=== PATIENT | male | born 1990 | race Caucasian/White ===

== ENCOUNTER → 2018-11-03 17:35 | Outpatient (CLI) | payer OTHER, SELFPAY ==
--- NOTE | 2018-11-03 17:49 | CT_ITS ---
STUDY: CT RIGHT HAND WITH NO CONTRAST REASON FOR EXAM: Male, 28 years old. Fifth metacarpal fracture RADIATION DOSAGE (If Supplied By Facility): CTDIvol = ( 24.58 ) mGy, DLP = ( 652.80 ) mGycm. Individualized dose optimization techniques were used for this CT.? TECHNIQUE: 2.5 mm axial images was reformatted at coronal and sagittal series included. COMPARISON: None. FINDINGS: Comminuted fracture is noted at the base of the fifth metacarpus involving the proximal articular surface. Remaining metacarpal bones and carpal bones are normal. Normal phalanges of the digits. Normal visualized radius and ulna. No soft tissue collection. Mild medial subcutaneous edema is noted. CT/Extremity Upper without Contra IMPRESSION: Comminuted fracture is noted at the base of the fifth metacarpus involving the articular surface. Electronically Signed: Amauri Cortés DO at 18:51 EST Tel [phone], Service support ,
== END ==
PROVIDERS: Family Provider Family Medicine; PCP Family Medicine; Referring Provider Physician Assistant; Visit Provider Physician Assistant
DX: S62.346A Nondisplaced fracture of base of fifth metacarpal bone, right hand, initial encounter for closed fracture (principal)
CPT/HCPCS: 73200

== ENCOUNTER → 2020-11-16 07:48 | Outpatient (CLI) | payer OTHER, SELFPAY ==
[2020-11-09 09:22] VITALS: BMI 22.4
--- NOTE | 2020-11-16 07:53 | CT_ITS ---
STUDY: CT ABDOMEN AND PELVIS WITH CONTRAST REASON FOR EXAM: Male, 30 years old. STOMACH PAIN, HX-CROHNS, INCISIONAL HERNIA, PREV PANCREATIC REPAIR D/T TRAUMA, ANAL FISTULA REPAIR RADIATION DOSAGE (If Supplied By Facility): CTDIvol = ( 9.6 ) mGy, DLP = ( 622.87 ) mGycm TECHNIQUE: Transaxial images were obtained from the dome of the diaphragm to the symphysis pubis with oral contrast. Oral and amp; IV Readi-CAT and amp; 100mL Isovue-300 was administered. Sagittal and coronal images were reconstructed. Individualized dose optimization techniques were used for this CT. COMPARISON: None. FINDINGS: The visualized lung bases are unremarkable. The visualized portions of the heart are within normal limits. Normal liver. Normal gallbladder and extrahepatic biliary system. Normal spleen. Normal pancreas. Normal bilateral adrenal glands. Normal right kidney. Normal left kidney. There is a small hiatal hernia. There is evidence of a circumferential wall thickening of the terminal ileum with the increased markings in the surrounding peritoneal fat and small mesenteric lymph nodes at that site. There is also evidence of a mild degree of thickening of the medial aspect of the cecum. Normal colon. The appendix is visualized and appears normal. Normal abdominal aorta. Normal inferior vena cava. Normal retroperitoneum. Normal urinary bladder. Normal abdominal wall. Normal osseous structures. CT/Abdomen/Pelvis WITH Contrast IMPRESSION: Circumferential wall thickening and inflammatory changes of the terminal ileum with narrowing. There is also evidence of mild degree of edematous changes of the cecum. Electronically Signed: Alfredo Barakat MD at 9:04 EST , Service support ,
== END ==
PROVIDERS: PCP Student in an Organized Health Care Education/Training Program; Referring Provider Surgery; Visit Provider Surgery
DX: K43.2 Incisional hernia without obstruction or gangrene (principal)
CPT/HCPCS: 74177; Q9967

== ENCOUNTER 2022-05-18 09:28 | Emergency (ER) | payer OTHER, SELFPAY ==
[2022-05-18 09:28] VITALS: BP 162/90; PULSE 105; RESP 18; TEMP 36.1; O2SAT 100; BMI 22.4
--- NOTE | 2022-05-18 10:12 | CT_ITS ---
STUDY: CT BRAIN WITHOUT CONTRAST REASON FOR EXAM: Male, 32 years old. Headache RADIATION DOSAGE (If Supplied By Facility): CTDIvol = ( 44.99 ) mGy, DLP = ( 829.85 ) mGycm TECHNIQUE: Transaxial CT imaging of the brain was performed without administration of intravenous contrast material. Individualized dose optimization techniques were used for this CT. COMPARISON: No relevant priors. FINDINGS: Normal soft tissue structures. Normal calvarium. Normal size ventricles and extra-axial spaces for the patient''s age. Normal white matter tracts of the cerebral hemispheres. Normal basal ganglia and thalami. Normal brainstem. Normal cerebellum. There is no intracranial hemorrhage. There are no findings of an acute ischemic infarction. Nodular mucosal thickening at the bases of the maxillary sinuses bilaterally more prominent on the left side. Mild degree mucosal thickening of the ethmoid sinuses. CT/Brain/Head without Contrast IMPRESSION: Mucosal thickening of the ethmoid sinuses as well as the maxillary sinuses bilaterally more prominent on the left side. No intracranial abnormality is seen. Electronically Signed: Alfredo Barakat MD at 11:11 EDT ,
--- NOTE | 2022-05-18 10:13 | EKG12_ITS ---
Test Reason : BACK PAIN Blood Pressure : / mmHG Vent. Rate : 095 BPM Atrial Rate : 095 BPM P-R Int : 174 ms QRS Dur : 122 ms QT Int : 356 ms P-R-T Axes : 066 078 051 degrees QTc Int : 447 ms Normal sinus rhythm Normal ECG Confirmed by SHRAVAN CASIANO, LISA ([id number]), editorial specialist JESSIE CASTELAN ([id number]) on 05/22/2022 9:12:24 AM Referred By: TL Confirmed By:LISA CHENEY MD
--- NOTE | 2022-05-18 10:19 | EDS_ITS ---
HPI History of Present Illness Chief Complaint: Back Informant: patient Narrative Narrative: Patient is a 32-year-old male with history of Crohn's disease, not currently on any medications, presenting with back pain. Patient states he woke up and just having pretty severe lower back pain. He also started having fuzzy feeling/tingling in his bilateral legs and tremor and numbness in his right hand. He states yesterday he had a mild sore throat and congestion. Has not had any known fever. No known sick contacts. Has had nausea but no vomiting has been having diarrhea for the past 2 days. He is not eating any abnormal foods. Denies any vision changes. Notes with past few weeks he has had a frontal headache. States he is to contribute to stress but it is worrying him given his other symptoms right now. Not take any medications prior to arrival. [facility] Medical History ADD (attention deficit disorder) Anxiety and depression Crohn's disease Fistula, anal Hernia Home Medications ondansetron 4 mg disintegrating tablet 4 mg PO Q6H PRN nausea and vomiting #10 t abs 05/18/22 [Rx Last Taken Unknown] Allergy/AdvReac Type Severity Reaction Status Date / Time amoxicillin [From Augmentin] Allergy Mild rash Verified 05/18/22 09:29 clavulanic acid Allergy Mild rash Verified 05/18/22 09:29 [From Augmentin] promethazine [From Phenergan] Allergy Mild rash Verified 05/18/22 09:29 Family History Sister Lupus (systemic lupus erythematosus) Surgical History history of repair of fistula Hx of exploratory laparotomy Social History Smoking Status: Former smoker ROS ROS ED Constitutional Constitutional ED: Reports chills; Denies fever(s) or sweats Eyes Eyes: Denies blurry vision or diplopia ENT ENT ED: Reports sore throat and other Details: Nasal congestion ; Denies ear pain Cardiovascular Cardiovascular: Denies chest pain or palpitations Respiratory/Chest Respiratory/Chest: Reports dyspnea; Denies cough Gastrointestinal Gastrointestinal: Reports diarrhea and nausea; Denies abdominal pain, constipation, melena or vomiting Genitourinary Genitourinary ED: Denies dysuria, hematuria or urinary frequency Musculoskeletal Musculoskeletal: Reports back pain and myalgias; Denies neck pain Integumentary Denies rash Neurologic Neurologic: Reports headache(s) and paresthesias; Denies weakness Psychiatric Psychiatric: Reports anxiety EXAM Physical Exam Const Vital Signs: 05/18/22 09:28 Temperature 96.9 F L Temperature Source Temporal Pulse Rate 105 H Respiratory Rate 18 Blood Pressure 162/90 H Blood Pressure Mean 114 Pulse Ox 100 Oxygen Delivery Method Room Air Positive well nourished and well developed Constitutional Narrative: thin General Appearance ED: well developed and NAD HEENT Reports TM's clear and moist mucous membranes HEENT Narrative: Mildly injected erythema of the posterior oropharynx. Normal tonsils. Negative for trauma Tympanic Membrane ED: Yes TM's clear Eyes PERRL and EOMs intact bilaterally Neck no lymphadenopathy, supple and no JVD Resp normal respiratory effort Auscultation: rhonchi right upper; Negative for wheezes or diminished lung sounds Cardio regular rate, regular rhythm and no murmurs Cardio Narrative: 2+ PT, DP and radial pulses bilaterally GI normal to inspection, nondistended, normoactive bowel sounds and non-tender GI Narrative: Midline surgical incision, healed. Small reducible associated abdominal wall hernia Back/Spine no CVA tenderness Back/Spine Narrative: Pain in the lower lumbar and paraspinal area however it is not reproducible with palpation Thoracic Spine / Upper Back: Negative for thoracic spinal tenderness or paraspinal muscle tenderness Lumbar Spine / Lower Back: Negative for lumbar spinal tenderness Extremity normal to inspection General Extremety ED: Negative for edema or tenderness General Extremity: Negative for edema Neuro oriented x3, CN's II-XII intact bilaterally and no sensory deficits noted Neuro Narrative: Mild intermittent tremor of the right hand. 2+ PT pulses. 5/5 strength with plantar dorsiflexion. 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 Motor Exam: strength 5/5 throughout; Negative for general weakness Psych mental status grossly normal Mood & Affect: anxious Skin no rashes or lesions noted, no wounds and skin turgor normal General Skin Exam: elasticity normal MDM MDM MDM Narrative Medical decision making narrative: Patient is evaluated for COVID-like illness with nausea, diarrhea, body aches, back pain, sore throat congestion. He has a vague sensation of tingling in his legs, atraumatic back pain and tremor in his arms and has been having a headache for the past month so I did order a head CT. He has equal reflexes, no weakness of the lower extremities and 2+ pulses in all extremities. I do not think he has more severe cause such as [place] syndrome, aortic dissection or septicemia. Patient is given IV fluids, Reglan and Tylenol and has significant improvement of his symptoms. He starts sweating and states he is actually feeling much better. CBC is normal however he does have a mild lymphopenia. Rapid COVID is negative. Urinalysis shows 50 ketones but otherwise negative. Urine drug positive only for cannabis. CMP largely unremarkable and his lactate is normal at 1.3. I highly suspect patient is a viral syndrome that is causing his symptoms possibly COVID given the current pandemic. Given his headache for couple weeks I did order CT of the brain. This shows some thickening of the mucosa in the ethmoid sinuses as well as maxillary sinuses. Is likely the cause of his headaches. No space-occupying lesion is seen. I do not suspect meningitis. Will send off for COVID PCR. Patient be discharged home with allergy medicines for sinusitis and instructions alternate ibuprofen and Tylenol. He verbalizes agreement of his plan. He is given a work note. Discharged home in stable improved condition. Lab Data Attestation: I reviewed the patient's lab results. Labs: Laboratory Results - last 24 hr 05/18/22 05/18/22 05/18/22 10:18 10:18 10:23 WBC 6.7 RBC 4.65 Hgb 14.2 Hct 40.6 MCV 87.3 MCH 30.5 MCHC 35.0 RDW Std Deviation 37.2 RDW Coeff of Cleopatra 11.6 Plt Count 160 MPV 11.9 Immature Gran % (Auto) 0.300 Neut % (Auto) 88.9 H Lymph % (Auto) 2.8 L Cedar % (Auto) 6.9 Eos % (Auto) 0.7 Baso % (Auto) 0.4 Absolute Neuts (auto) 5.9 Absolute Lymphs (auto) 0.19 L Nucleated RBC % 0 Differential Comment Platelet Estimate ADEQUATE RBC Morphology NORM C+C Sodium Potassium Chloride Carbon Dioxide Anion Gap BUN Creatinine Estim Creat Clear Calc Est GFR (MDRD) Af Amer Est GFR (MDRD) Non-Af BUN/Creatinine Ratio Glucose Lactic Acid Calcium Total Bilirubin AST ALT Alkaline Phosphatase Total Creatine Kinase Troponin I High Sens Total Protein Albumin Globulin Albumin/Globulin Ratio Lipase Urine Color Yellow Urine Clarity Clear Urine pH 7.0 Ur Specific [place] 1.005 Urine Protein Negative Urine Glucose (UA) Normal Urine Ketones 50 H Urine Occult Blood 10 H Urine Nitrite Negative Urine Bilirubin Negative Urine Urobilinogen Normal Ur Leukocyte Esterase Negative Urine RBC 0 SEEN Urine WBC 0 SEEN Ur Squamous Epith Cells 0 SEEN Urine Bacteria 0 SEEN Urine Mucus 0 SEEN Urine Opiates Screen NEGATIVE Urine Methadone Screen NEGATIVE Ur Barbiturates Screen NEGATIVE Ur Phencyclidine Scrn NEGATIVE Ur Amphetamines Screen NEGATIVE MDMA (Ecstasy) Screen NEGATIVE U Benzodiazepines Scrn NEGATIVE Urine Cocaine Screen NEGATIVE U Cannabinoids Screen POSITIVE H Ur Drug Screen Comment 05/18/22 05/18/22 10:23 10:23 WBC RBC Hgb Hct MCV MCH MCHC RDW Std Deviation RDW Coeff of [place] Plt Count MPV Immature Gran % (Auto) Neut % (Auto) Lymph % (Auto) Cedar % (Auto) Eos % (Auto) Baso % (Auto) Absolute Neuts (auto) Absolute Lymphs (auto) Nucleated RBC % Differential Comment Platelet Estimate RBC Morphology Sodium 137 Potassium 3.3 L Chloride 106 Carbon Dioxide 25.0 Anion Gap 6 BUN 11 Creatinine 1.13 Estim Creat Clear Calc 104.26 Est GFR (MDRD) Af Amer 98 Est GFR (MDRD) Non-Af 81 BUN/Creatinine Ratio 9.7 L Glucose 92 Lactic Acid 1.3 Calcium 9.3 Total Bilirubin 0.60 AST 19 ALT 18 Alkaline Phosphatase 70 Total Creatine Kinase 123 Troponin I High Sens 4 Total Protein 7.7 Albumin 4.2 Globulin 3.5 Albumin/Globulin Ratio 1.2 Lipase 89 Urine Color Urine Clarity Urine pH Ur Specific [place] Urine Protein Urine Glucose (UA) Urine Ketones Urine Occult Blood Urine Nitrite Urine Bilirubin Urine Urobilinogen Ur Leukocyte Esterase Urine RBC Urine WBC Ur Squamous Epith Cells Urine Bacteria Urine Mucus Urine Opiates Screen Urine Methadone Screen Ur Barbiturates Screen Ur Phencyclidine Scrn Ur Amphetamines Screen MDMA (Ecstasy) Screen U Benzodiazepines Scrn Urine Cocaine Screen U Cannabinoids Screen Ur Drug Screen Comment Radiography Diagnostic Testing: Clinical Impression(s) from Imaging Studies Brain CT 05/18/22 10:12 IMPRESSION: Mucosal thickening of the ethmoid sinuses as well as the maxillary sinuses bilaterally more prominent on the left side. No intracranial abnormality is seen. Electronically Signed: Alfredo Barakat MD at 11:11 EDT , Rhythm Strip Rhythm Strip: Sinus Rhythm Rate: 95 Ectopy: None EKG Initial EKG: Attestation: I personally reviewed and interpreted this EKG as follows: Interpretation: Sinus Rhythm Comments: Normal sinus rhythm and rate of 95 Normal intervals Normal axis Normal ST segments Nonspecific conduction delay in V1 and V2 which could be a normal variant Discharge Plan Triage Chief Complaint: Back ED Provider: Emma Amin Dx/Rx/DC Orders Clinical Impression: Acute viral syndrome, Back pain, Headache, Sinusitis Instructions: ED Sinusitis (No Antibiotics), ED Viral Syndrome (Adult) Prescriptions: New ondansetron 4 mg tablet,disintegrating 4 mg PO Q6H PRN (Reason: nausea and vomiting) Qty: 10 0RF Primary Care Provider: Tu Charlton Referrals: Tu Charlton DO [Primary Care Provider] - FriendVin DO [STAFF PHYSICIAN] - As Needed Activity Restrictions/Additional Instructions: I suspect you have a viral syndrome, possibly COVID. Your COVID PCR test is pending. You will be contacted if it is positive. Your CT of the brain did show thickening of your sinuses which is likely causing her headaches. Please start taking a daily Zyrtec to see if this helps. Also use [id number] Flonase. During lots of fluids and alternate ibuprofen and Tylenol for your symptoms. Return the emergency room with any worsening symptoms. Disposition Disposition: Home, Self Care
--- NOTE | 2022-05-18 10:20 | NURSING ---
NO OLD EKGS
[2022-05-18 10:24] LABS: Bacteria 0 SEEN /hpf (None Seen); Mucous, Urine 0 SEEN /hpf (<or=2+); Red Blood Cells-Urine 0 SEEN /hpf (0-5); Squamous Epithelial Cells - UA 0 SEEN /hpf (0-5); White Blood Cells 0 SEEN /hpf (0-5)
[2022-05-18] MEDS: 0.9% Normal Saline 1,000 ML 1000 ML IV (10:28)
[2022-05-18] MEDS: Acetaminophen 500 MG Tablet 1000 MG PO (10:28)
[2022-05-18] MEDS: Metoclopramide 10 MG/2 ML Vial IV (10:29)
[2022-05-18 10:32] LABS: Color, Urine Yellow (Yellow); Glucose, Dipstick Normal (Normal); Ketone-Dipstick 50 mg/dl (Negative); Leukocyte Esterase-Dipstick Negative /ul (Negative); Nitrite-Dipstick Negative (Negative); Occult Blood-Urine 10 /ul (Negative); Protein-Dipstick Negative (Negative); Specific Gravity, Urine 1.005 (1.002-1.030); Urine Bilirubin Dipstick Negative (Negative); Urine Clarity Clear (Clear); Urine Urobilinogen Normal (Normal)
[2022-05-18 10:34] LABS: Absolute Lymphocyte Count 0.19 X10^3/uL (0.83-4.51); Absolute Neutrophil Count 5.9 X10^3/uL (2.0-7.7); Basophil# 0.03 X10^3/uL; Basophil% 0.4 % (0-1); Eosinophil# 0.05 X10^3/uL; Eosinophils% 0.7 % (0-5); Hematocrit 40.6 % (40-54); Hemoglobin 14.2 g/dL (13.0-16.5); Lymphocyte # 0.19 X10^3/ul (0.83-4.51); Lymphocyte % 2.8 % (19-41); Mean Corpuscular Hgb 30.5 pg (27.0-32.0); Mean Corpuscular Volume 87.3 fL (80-94); Mean Platelet Vol. 11.9 fl (6.2-12.0); Monocyte# 0.46 X10^3/uL; Monocyte% 6.9 % (0-10); NRBC Flagged by Analyzer 0 % (0-5); Neutrophil # 5.93 X10^3/uL (2.7-7.7); Neutrophil % 88.9 % (47-70); POSITIVE DIFFERENTIAL YES; Platelet Count 160 K/mm3 (150-450); RBC Distribution Width CV 11.6 % (11.6-14.6); RBC Distribution Width SD 37.2 fl (35.1-43.9); Red Blood Count 4.65 M/mm3 (4.6-6.2); White Blood Count 6.7 K/mm3 (4.4-11.0)
[2022-05-18 10:37] LABS: Differential Indicated SCAN CRITERIA MET
[2022-05-18 10:55] LABS: Lactic Acid 1.3 mmol/L (0.4-1.9)
[2022-05-18 10:57] LABS: ALB/GLOB Ratio 1.2 RATIO (0.9-2.4); AST(SGOT) 19 U/L (15-37); Alanine Aminotransfer ALT/SGPT 18 U/L (16-61); Albumin, Serum 4.2 g/dL (3.2-5.0); Alkaline Phosphatase 70 U/L (45-117); Anion Gap 6 (5-15); BUN 11 mg/dL (7-18); BUN/Creat Ratio 9.7 RATIO (10-20); CPK Total, Creatine Kinase 123 U/L (39-308); Calcium,Total 9.3 mg/dL (8.5-10.1); Chloride 106 mmol/L (98-107); Creatinine, Serum 1.13 mg/dL (0.70-1.30); EST Glomerular Filtration Rate 81 mL/min (>60); Est Glom Filt Rate - Afr Amer 98 mL/min (>60); Estimated Creatinine Clearance 104.26 ml/min; Globulin 3.5 g/dL (2.2-4.2); Glucose 92 mg/dL (74-106); Lipase 89 U/L (73-393); Potassium 3.3 mmol/L (3.5-5.1); Protein, Total 7.7 g/dL (6.4-8.2); Sodium Level 137 mmol/L (136-145); Troponin-I HS 4 pg/mL (3.0-78.0)
[2022-05-18 10:59] LABS: Amphetamine Urine VISTA NEGATIVE (<1000 ng/mL); Barbiturate Urine VISTA NEGATIVE (< 200 ng/mL); Benzodiazepine Urine VISTA NEGATIVE (< 200 ng/mL); Cocaine Urine VISTA NEGATIVE (< 300 ng/mL); Ecstacy Urine VISTA NEGATIVE (< 500 ng/mL); Methadone Urine VISTA NEGATIVE (< 300 ng/mL); PCP Urine VISTA NEGATIVE (< 25 ng/mL); THC Urine VISTA POSITIVE (< 50 ng/mL); Vista UDS pH Range 6
[2022-05-18 11:04] LABS: Platelet Estimate ADEQUATE (ADEQ); Red Cell Morphology NORM C+C NORMAL (NORM C&C)
== END 2022-05-18 12:38 | disposition home or self-care (01) ==
PROVIDERS: Emergency Provider Emergency Medicine; PCP Student in an Organized Health Care Education/Training Program; Visit Provider Emergency Medicine
DX: R20.2 Paresthesia of skin (principal); K50.90 Crohn's disease, unspecified, without complications; M54.9 Dorsalgia, unspecified; R25.1 Tremor, unspecified; R19.7 Diarrhea, unspecified; R11.0 Nausea; B34.9 Viral infection, unspecified; Z20.822 Contact with and (suspected) exposure to COVID-19; Z87.891 Personal history of nicotine dependence
CPT/HCPCS: 70450; 80053; 80307; 81001; 82550; 83605; 83690; 84484; 85025; 87428; 87635; 93005; 96361; 96374; 99283; J7030; U0003; U0005